=== PATIENT | female | born 1990 | race African-American/Black ===

== ENCOUNTER 2017-06-11 20:24 | Emergency (ER) | payer OTHER, SELFPAY ==
[~2017-06-11] VITALS: Ht 162.6 cm; Wt 63.0 kg
[~2017-06-11 20:24] MED LIST: IBUPROFEN600 MG ORAL; NKM
[2017-06-11 20:42] VITALS: BP 97/60
[2017-06-11 20:58] LABS: APPEARANCE,URINE CLEAR; KETONES,URINE NEGATIVE (NEGATIVE); LEUKOCYTE ESTERASE ,URINE 3+ (NEGATIVE); NITRITE,URINE NEGATIVE (NEGATIVE); PH,URINE 7 (4.5-8.0); PROTEIN,URINE 1+ (NEGATIVE); UROBILINOGEN,URINE NORMAL MG/DL (0.0-1.0)
[2017-06-11 21:02] LABS: BACTERIA,URINE FEW /HPF; MUCUS,URINE FEW /LPF (NONE/OCC); SQUAMOUS EPITHELIAL CELL,UR OCCASIONAL /LPF (NONE/OCC)
[2017-06-11] MEDS ORDERED: PHENAZOPYRIDIN200 MG ORAL (21:47)
[2017-06-11 21:57] VITALS: BP 97/60
--- NOTE | 2017-06-11 22:04 | Emergency Room Report ---
History of Present Illness General Chief Complaint: Female Urogenital Problems Source: Patient Present Illness HPI 27YOF with continued vaginal irritation Denies dysuria, polyuria States "Gabi been to 3 ERs and 1 clinic." She got tested for STDs, "all negative." Complete Abx for UTI already Completed anti-fungal "one time" for "cottage cheese discharge" and then "3 more doses of same" after that Denies current "cottage cheese discharge." Allergies: Coded Allergies: No Known Allergies (Unverified , 09/14/12) Patient History Past Medical History: none Past Surgical History: none Pertinent Family History: none Last Menstrual Period: may 17 Now: No : 2 Para: 2 Immunizations: UTD Reviewed Nursing Documentation: PMH: Agreed, PSxH: Agreed Nursing Documentation-PMH Hx Cardiac Problems: No - ANEMIA, Review of Systems All Other Systems: negative except mentioned in HPI Physical Exam Vital Signs Date Time Temp Pulse Resp B/P (MAP) Pulse Ox O2 Delivery O2 Flow Rate FiO2 06/11/17 20:30 98.2 88 18 97/60 98 Room Air Sp02 EP Interpretation: reviewed, normal General Appearance: normal inspection, well appearing, no apparent distress, alert, GCS 15, non-toxic Head: normocephalic, atraumatic Eyes: bilateral eye PERRL, bilateral eye EOMI ENT: normal ENT inspection, hearing grossly normal, normal pharynx, no angioedema, normal voice, TMs + canals normal, uvula midline, moist mucus membranes Neck: normal inspection, full range of motion, supple, thyroid normal, no meningismus, no bony tend Respiratory: normal inspection, lungs clear, normal breath sounds, no rhonchi, no respiratory distress, no retraction, no accessory muscle use, no wheezing, speaking full sentences Cardiovascular #1: regular rate, rhythm, no edema, no JVD, normal capillary refill Gastrointestinal: normal inspection, normal bowel sounds, non tender, soft, no mass, no peritonitis, non-distended, no guarding, no hernia, no pulsatile mass Genitourinary: no CVA tenderness Musculoskeletal: normal inspection, back normal, normal range of motion, no calf tenderness, pelvis stable, Hoa's Sign negative Neurologic: normal inspection, alert, oriented x3, responsive, it intern III-XII nml as tested, motor strength/tone normal, cerebellar normal, normal gait, speech normal Psychiatric: normal inspection, judgement/insight normal, mood/affect normal, no suicidal/homicidal ideation, no delusions Skin: normal inspection, normal color, no rash Lymphatic: normal inspection, no adenopathy Medical Decision Making Diagnostic Impression: Primary Impression: Dysuria ER Course Urine preg negative No obvious UTI and unlikely given recently completed Abx Patient already took anti-fungal, likely diflucan, 1x and then 3x for refractory fungal infection Advised STOPPING additional antibacterials, antifungal d/t likely disruption in normal vaginal cheryl Rx Pyridium for irritation ER course: Patient has remained stable during ED stay. Patient is to be discharged to home. Prescriptions given are pyridium Patient is instructed to follow up with their primary care doctor within 5 days. Strict return precautions discussed with patient such as fever, chills, worsening/severe pain, nausea, vomiting, which may indicate severe illness. Patient verbalizes understanding and agrees with plan. Please note that this Emergency Department Report was dictated using [employer] system dispatcher technology software, occasionally this can lead to erroneous entry secondary to interpretation by the dictation equipment Last Vital Signs Date Time Temp Pulse Resp B/P (MAP) Pulse Ox O2 Delivery O2 Flow Rate FiO2 06/11/17 20:42 98.2 88 18 97/60 98 Room Air Status: improved Disposition: HOME, SELF-CARE Condition: Improved Scripts Phenazopyridine Hcl* (PYRIDIUM*) 200 Mg Tablet 200 MG ORAL THREE TIMES A DAY for dysuria for 2 Days, #6 TAB 0 Refills Prov: ARIAN BOSCH M.D. 06/11/17 Referrals: [email or web address],REFERRING (PCP) Patient Instructions: Vaginitis Additional Instructions: - Take after meals ARIAN BOSCH M.D. Jun 11, 2017 22:04
== END 2017-06-11 21:57 | disposition home or self-care (01) ==
LOC: EMR 20:49
DX: N89.8 Other specified noninflammatory disorders of vagina (principal); R30.0 Dysuria
CPT/HCPCS: 81003; 81025; 99283

== ENCOUNTER 2017-06-27 23:19 | Emergency (ER) | payer OTHER ==
[~2017-06-27] VITALS: Ht 162.6 cm; Wt 63.5 kg
[~2017-06-27 23:19] MED LIST changes: +PHENAZOPYRIDIN200 MG ORAL
[2017-06-27 23:45] VITALS: BP 113/73
[2017-06-28] MEDS ORDERED: Lidocaine 1% MPF 10mg/ml 5ml INJ ONE
[2017-06-28 00:06] LABS: APPEARANCE,URINE CLEAR; BILIRUBIN, URINE NEGATIVE (NEGATIVE); COLOR,URINE PALE YELLOW; GLUCOSE, URINE (UA) NEGATIVE (NEGATIVE); KETONES,URINE NEGATIVE (NEGATIVE); LEUKOCYTE ESTERASE ,URINE 2+ (NEGATIVE); NITRITE,URINE NEGATIVE (NEGATIVE); PH,URINE 7 (4.5-8.0); PROTEIN,URINE NEGATIVE (NEGATIVE); UROBILINOGEN,URINE 1 MG/DL (0.0-1.0)
[2017-06-28] MEDS ORDERED: FLUCONAZOLE100 MG ORAL (00:27)
[2017-06-28] MEDS ORDERED: METROGEL-VAGINA70 G1 VAGIN (00:38)
[2017-06-28] MEDS ORDERED: DOXYCYCLINE MO100 MG ORAL (00:38)
[2017-06-28 01:06] VITALS: BP 113/73
--- NOTE | 2017-07-09 11:42 | Emergency Room Report ---
History of Present Illness General Chief Complaint: Female Urogenital Problems Source: Patient Present Illness HPI Patient is a 27 year old female who presented after increased vaginal discharge and dysuria. Patient had recently finished a course of antibiotics. She denied fever. She denied severe pain. She reported having recently seen a physician but did not know what medications were. She denied localized pain. She denied vomiting, diarrhea or bloody stools. Allergies: Coded Allergies: No Known Allergies (Unverified , 09/14/12) Patient History Past Medical History: see triage record Last Menstrual Period: 2016 Now: No Reviewed Nursing Documentation: PMH: Agreed, PSxH: Agreed Nursing Documentation-PMH Past Medical History: No History, Except For Hx Cardiac Problems: No - Anemia, UTI, Ectopic Review of Systems All Other Systems: negative except mentioned in HPI Physical Exam Vital Signs Date Time Temp Pulse Resp B/P (MAP) Pulse Ox O2 Delivery O2 Flow Rate FiO2 06/27/17 23:27 98.8 106 16 113/73 98 Room Air General Appearance: well appearing, no apparent distress, alert, GCS 15 Head: normocephalic, atraumatic ENT: hearing grossly normal, normal voice Neck: full range of motion, supple Respiratory: normal inspection, lungs clear, no respiratory distress, speaking full sentences Cardiovascular #1: normal inspection, regular rate, rhythm Gastrointestinal: normal inspection, non tender, soft Genitourinary: no CVA tenderness Musculoskeletal: normal inspection, digits/nails normal, no calf tenderness Neurologic: normal inspection, alert, oriented x3, responsive, normal gait Psychiatric: mood/affect normal Skin: no rash Medical Decision Making Diagnostic Impression: Primary Impression: Vaginitis ER Course Patient is a 27 year old female who presented for increased vaginal discharge. Differential diagnosis included but was not limited to vaginitis, PID, bacterial vaginosis, trichomonas among others. Patient appears to have a benign exam. Patient was empirically treated for STDs. She was advised outpatient follow up for further STD and HIV testing. She was advised to return for worsening pain, fever, or other concerns. Labs Test 06/27/17 23:50 Urine Color Pale yellow Urine Appearance Clear Urine pH 7 (4.5-8.0) Urine Specific [place] 1.010 (1.005-1.035) Urine Protein Negative (NEGATIVE) Urine Glucose (UA) Negative (NEGATIVE) Urine Ketones Negative (NEGATIVE) Urine Occult Blood Negative (NEGATIVE) Urine Nitrite Negative (NEGATIVE) Urine Bilirubin Negative (NEGATIVE) Urine Urobilinogen 1 MG/DL (0.0-1.0) Urine Leukocyte Esterase 2+ (NEGATIVE) Urine RBC 0-2 /HPF (0 - 2) Urine WBC 10-15 /HPF (0 - 2) Urine Squamous Epithelial Cells Many /LPF (NONE/OCC) Urine Bacteria Few /HPF (NONE) Urine HCG, Qualitative Negative Last Vital Signs Date Time Temp Pulse Resp B/P (MAP) Pulse Ox O2 Delivery O2 Flow Rate FiO2 06/28/17 01:06 98.8 88 16 113/73 98 Room Air Status: improved Disposition: HOME, SELF-CARE Condition: Stable Scripts Metronidazole* (METROGEL-VAGINAL*) 70 Gm Gel.w.appl 1 APPL VAGIN EVERY 12 HOURS, #70 GM Prov: Alexi Brown 06/28/17 Doxycycline Monohydrate* (DOXYCYCLINE MONOHYDRATE*) 100 Mg Capsule 100 MG ORAL Q12H, #14 CAP 0 Refills Prov: Alexi Brown 06/28/17 Fluconazole (FLUCONAZOLE) 100 Mg Tablet 100 MG ORAL DAILY, #1 TAB 0 Refills Prov: Alexi Brown 06/28/17 Alexi Brown Jul 09, 2017 11:42
== END 2017-06-28 01:06 | disposition home or self-care (01) ==
LOC: EMR 23:40
DX: R10.9 Unspecified abdominal pain (principal); N89.8 Other specified noninflammatory disorders of vagina
CPT/HCPCS: 81003; 81025; 87086; 96372; 99283; J0696

== ENCOUNTER 2018-09-26 21:19 | Emergency (ER) | payer MEDICAID, OTHER ==
[~2018-09-26] VITALS: Ht 160 cm; Wt 63.5 kg
[~2018-09-26 21:19] MED LIST changes: +DOXYCYCLINE MO100 MG ORAL; +FLUCONAZOLE100 MG ORAL; +METROGEL-VAGINA70 G1 VAGIN
--- NOTE | 2018-09-26 21:30 | NUR ---
ED Nurse Note: PT WALKED IN TO ER TODAY FROM HOME. AOX4. PT C/O VAGINAL ITCHING, SWELLING AND SCANT "COTTAGE CHEESE"-LIKE DISCHARGE X 2 DAYS AGO. PT DENIES ANY BLEEDING, ODOR, OR REDNESS. PT DENIES ANY DIFFICULTY URINATING, BURNING SENSATION WHILE URINATING OR INCREASE IN FREQUENCY/URGENCY.
[2018-09-26 21:31] VITALS: BP 112/62
--- NOTE | 2018-09-26 22:00 | NUR ---
ED Nurse Note: URINE COLLECTED AND SENT TO LAB.
[2018-09-26 22:18] LABS: APPEARANCE,URINE SLIGHTLY CLOUDY; BILIRUBIN, URINE NEGATIVE (NEGATIVE); COLOR,URINE PALE YELLOW; GLUCOSE, URINE (UA) NEGATIVE (NEGATIVE); KETONES,URINE NEGATIVE (NEGATIVE); LEUKOCYTE ESTERASE ,URINE 3+ (NEGATIVE); NITRITE,URINE NEGATIVE (NEGATIVE); PH,URINE 7 (4.5-8.0); PROTEIN,URINE NEGATIVE (NEGATIVE); UROBILINOGEN,URINE 1 MG/DL (0.0-1.0)
--- NOTE | 2018-09-26 22:20 | Emergency Room Report ---
History of Present Illness General Chief Complaint: Female Urogenital Problems Source: Patient Present Illness HPI Is a 28-year-old female with no past medical she patient presents with chief complaint of vaginal discharge. She said it was a thick cottage cheesy-like discharge for last 2 days. Itching. No fever or chills. Tried Monistat today and not helping. No urinary complaint. Is sexually active history of Chlamydia in the past. She has regular Pap smear. Last one show HPV and is being monitor. No other complaint. Allergies: Coded Allergies: No Known Allergies (Unverified , 09/14/12) Patient History Past Medical History: none, see triage record, old chart reviewed Past Surgical History: none Pertinent Family History: none Social History: Denies: smoking Last Menstrual Period: 08/05/18 Now: No Immunizations: other Reviewed Nursing Documentation: PMH: Agreed; PSxH: Agreed Nursing Documentation-PMH Past Medical History: No History, Except For Hx Cardiac Problems: No - Anemia, UTI, Ectopic Review of Systems Eye: Denies: eye pain, blurred vision ENT: Denies: ear pain, nose congestion, throat swelling Respiratory: Denies: cough, shortness of breath Cardiovascular: Denies: chest pain, palpitations Gastrointestinal: Denies: abdominal pain, diarrhea, nausea, vomiting Genitourinary: Reports: vag bleed/dc Musculoskeletal: Denies: back pain, joint pain Skin: Denies: rash Neurological: Denies: headache, numbness Endocrine: Denies: increased thirst, increased urine Hematologic/Lymphatic: Denies: easy bruising All Other Systems: negative except mentioned in HPI Physical Exam Vital Signs Date Time Temp Pulse Resp B/P (MAP) Pulse Ox O2 Delivery O2 Flow Rate FiO2 09/26/18 21:21 98.4 86 12 107/48 98 Room Air vitals normal Sp02 EP Interpretation: reviewed, normal General Appearance: well appearing, no apparent distress, alert Head: normocephalic, atraumatic Eyes: bilateral eye PERRL, bilateral eye EOMI ENT: hearing grossly normal, normal pharynx Neck: full range of motion, supple, no meningismus Respiratory: chest non-tender, lungs clear, normal breath sounds Cardiovascular #1: regular rate, rhythm, no murmur Gastrointestinal: normal bowel sounds, non tender, no mass, no organomegaly, no bruit, non-distended Musculoskeletal: back normal, gait/station normal, normal range of motion Psychiatric: mood/affect normal Skin: warm/dry Medical Decision Making Diagnostic Impression: Primary Impression: Vaginitis Qualified Codes: N76.0 - Acute vaginitis Additional Impression: UTI (urinary tract infection) Qualified Codes: N30.00 - Acute cystitis without hematuria ER Course Patient with a vaginitis. We'll treat for yeast infection based on the symptoms. She currently has Monistat intravaginally. This will limit the wet prep. If not better I told patient she would need cultures. Last Vital Signs Date Time Temp Pulse Resp B/P (MAP) Pulse Ox O2 Delivery O2 Flow Rate FiO2 09/26/18 21:31 98.2 82 14 112/62 99 Room Air Status: improved Disposition: HOME, SELF-CARE Condition: Stable Scripts Fluconazole (FLUCONAZOLE) 100 Mg Tablet 100 MG ORAL DAILY, #7 TAB 0 Refills Prov: Basilio Hodge MD 09/26/18 Nitrofurantoin Monohyd/M-Cryst (Nitrofurantoin [place]-Mcr 100 mg) 100 Mg Capsule 100 MG ORAL Q12H, #14 CAP Prov: Basilio Hodge MD 09/26/18 Patient Instructions: Urinary Tract Infection, Vaginal Yeast Infection, Adult Additional Instructions: Follow-up with your doctor in 7 days. Stop the Monistat. Return if symptom worsen. Basilio Hodge MD Sep 26, 2018 22:20
[2018-09-26] MEDS ORDERED: FLUCONAZOLE100 MG ORAL (22:56)
[2018-09-26] MEDS ORDERED: MACROBID100 MG ORAL (22:56)
[2018-09-26 22:57] VITALS: BP 118/68
--- NOTE | 2018-09-26 23:04 | NUR ---
ED Nurse Note: PT SITTING PEACEFULLY IN BED IN NAD. AOX4. PRESCRIPTIONS AND DISCHARGE PAPERWORK GIVEN TO PT. PT VERBALIZES UNDERSTANDING AND ALL QUESTIONS ANSWERED. PRESCRIPTIONS AND DISCHARGE PAPERWORK GIVEN TO PT AND ID WRISTBAND REMOVED. PT WALKED OUT OF ER WITH STEADY GAIT AND ALL BELONGINGS.
== END 2018-09-26 23:04 | disposition home or self-care (01) ==
LOC: EMR 21:58
DX: N76.0 Acute vaginitis (principal); N30.00 Acute cystitis without hematuria
CPT/HCPCS: 81003; 81025; 87086; 87181; 99283

== ENCOUNTER 2019-02-17 17:37 | Emergency (ER) | payer MEDICAID ==
[~2019-02-17] VITALS: Ht 162.6 cm; Wt 65.8 kg
[~2019-02-17 17:37] MED LIST changes: +MACROBID100 MG ORAL
[2019-02-17 17:47] VITALS: BP 111/68
--- NOTE | 2019-02-17 17:47 | NUR ---
ED Nurse Note: pt walked in to ED due to whitish vaginal discharge for 2 days. no pain or itchness. AAO x4. respirations even and non-labored noted. skin warm to touch. no open wound noted. will wait for the further order.
--- NOTE | 2019-02-17 18:03 | Emergency Room Report ---
History of Present Illness General Chief Complaint: Vaginal Source: Medical Record Present Illness HPI 28-year-old female with no significant past medical history here complaining of couple days of vaginal discharge described as white and having fishy odor. Patient reports that she is sexually active and does not use any protection. Denies vaginal ulcers and pruritus. Denies dysuria and urinary frequency. Denies fever and chills, suprapubic pain, flank pain, nausea vomiting. Patient reports that she last had STD check 3 months ago and was negative patient is still with the same partner. Has not taken any medication for symptom relief. Patient would like to be tested for chlamydia and gonorrhea however would like to wait for the results and if positive to take the appropriate antibiotic. Would like to be treated for possible bacterial vaginosis and yeast infection. LMP was a month ago and regular Allergies: Coded Allergies: No Known Allergies (Unverified , 09/14/12) Patient History Past Medical History: see triage record Past Surgical History: unable to obtain Pertinent Family History: none Last Menstrual Period: 01/19/19 Now: No Immunizations: UTD Reviewed Nursing Documentation: PMH: Agreed; PSxH: Agreed Nursing Documentation-PMH Past Medical History: No History, Except For Hx Cardiac Problems: No - Anemia, UTI, Ectopic Review of Systems All Other Systems: negative except mentioned in HPI Physical Exam Vital Signs Date Time Temp Pulse Resp B/P (MAP) Pulse Ox O2 Delivery O2 Flow Rate FiO2 02/17/19 17:47 99.0 68 18 111/68 (82) 100 Room Air Sp02 EP Interpretation: reviewed, normal General Appearance: no apparent distress, alert, GCS 15, non-toxic Head: normocephalic, atraumatic Eyes: bilateral eye normal inspection, bilateral eye PERRL ENT: hearing grossly normal, normal pharynx, no angioedema, normal voice Neck: full range of motion, supple/symm/no masses Respiratory: chest non-tender, lungs clear, normal breath sounds, no rhonchi, speaking full sentences Cardiovascular #1: regular rate, rhythm, no edema, no murmur Gastrointestinal: normal bowel sounds, non tender, soft, non-distended, no guarding, no rebound Genitourinary: normal inspection, no CVA tenderness Musculoskeletal: back normal, gait/station normal, normal range of motion, non- tender Neurologic: alert, oriented x3, responsive, motor strength/tone normal, sensory intact, speech normal Psychiatric: judgement/insight normal, memory normal, mood/affect normal, no suicidal/homicidal ideation Skin: no rash Lymphatic: no adenopathy Medical Decision Making PA Attestation All diagnoses and treatment plans were reviewed and discussed with my supervising physician Dr. Baca Diagnostic Impression: Primary Impression: Vaginitis Additional Impression: Screening for STD (sexually transmitted disease) ER Course 28-year-old female with no significant past medical history here complaining of couple days of vaginal discharge described as white and having fishy odor. Patient reports that she is sexually active and does not use any protection. Denies vaginal ulcers and pruritus. Denies dysuria and urinary frequency. Denies fever and chills, suprapubic pain, flank pain, nausea vomiting. Patient reports that she last had STD check 3 months ago and was negative patient is still with the same partner. Has not taken any medication for symptom relief. Patient would like to be tested for chlamydia and gonorrhea however would like to wait for the results and if positive to take the appropriate antibiotic. Would like to be treated for possible bacterial vaginosis and yeast infection. LMP was a month ago and regular Ddx considered but are not limited to: vaginitis, yeast infection, BV, chlamydia , Gonorrhea, UTI Vital signs: are WNL, pt. is afebrile H&PE are most consistent with : Vaginitis most likely secondary to BV and yeast infection ORDERS: UA, GC and chlamydia, urine , Flagyl, Diflucan ED INTERVENTIONS: None required at this time. DISCHARGE: At this time pt. is stable for d/c to home. Will provide printed patient care instructions, and any necessary prescriptions. Care plan and follow up instructions have been discussed with the patient prior to discharge. Patient take medication follow-up with her primary care provider pending GC and Chlamydia results if positive patient will be called and the appropriate antibiotics. Since he has no urinary frequency and urgency and no dysuria no need to treat positive leukocytes Last Vital Signs Date Time Temp Pulse Resp B/P (MAP) Pulse Ox O2 Delivery O2 Flow Rate FiO2 02/17/19 17:47 99.0 68 18 111/68 (82) 100 Room Air Disposition: HOME, SELF-CARE Condition: Stable Scripts Fluconazole (FLUCONAZOLE) 100 Mg Tablet 1.5 TAB ORAL ONCE for 1 Day, #2 TAB 0 Refills Prov: Lulú Bergeron 02/17/19 Metronidazole* (FLAGYL*) 500 Mg Tablet 500 MG ORAL BID for 7 Days, #14 TAB Prov: Lulú Bergeron 02/17/19 Patient Instructions: Vaginitis, Aevl-an-Enok Additional Instructions: Take medication as directed for possible yeast infection and bacterial vaginosis. Pending results for chlamydia and gonorrhea if either 1 of those are positive per your request we will go ahead and call you with the results and will let you know which antibiotics to be taken follow-up with your primary care provider if worsening symptoms return to the emergency room Lulú Bergeron Feb 17, 2019 18:02
[2019-02-17] MEDS ORDERED: METRONIDAZOLE500 MG ORAL (18:04)
[2019-02-17] MEDS ORDERED: FLUCONAZOLE100 MG ORAL (18:04)
[2019-02-17 18:15] VITALS: BP 111/68
--- NOTE | 2019-02-17 18:15 | NUR ---
ER DISCHARGE NOTE: Patient is cleared to be discharged per ERMD, pt is aox4, on room air, with stable vital signs. pt was given dc and prescription instructions, pt was able to verbalize understanding, pt id band removed without complications. pt is able to ambulate with steady gait. pt took all belongings.
[2019-02-17 18:16] LABS: APPEARANCE,URINE CLEAR; BILIRUBIN, URINE NEGATIVE (NEGATIVE); COLOR,URINE PALE YELLOW; GLUCOSE, URINE (UA) NEGATIVE (NEGATIVE); KETONES,URINE NEGATIVE (NEGATIVE); LEUKOCYTE ESTERASE ,URINE 1+ (NEGATIVE); NITRITE,URINE NEGATIVE (NEGATIVE); PH,URINE 6 (4.5-8.0); PROTEIN,URINE NEGATIVE (NEGATIVE); UROBILINOGEN,URINE NORMAL MG/DL (0.0-1.0)
== END 2019-02-17 18:17 | disposition home or self-care (01) ==
LOC: EMR 18:10
DX: N76.0 Acute vaginitis (principal); Z11.3 Encounter for screening for infections with a predominantly sexual mode of transmission
CPT/HCPCS: 81001; 81025; 87491; 87590; 99283

== ENCOUNTER 2019-04-06 17:25 | Emergency (ER) | payer MEDICAID ==
[~2019-04-06] VITALS: Ht 162.6 cm; Wt 68.0 kg
[~2019-04-06 17:25] MED LIST changes: +METRONIDAZOLE500 MG ORAL
[2019-04-06] MEDS ORDERED: NKM (17:39)
[2019-04-06 18:09] LABS: APPEARANCE,URINE CLOUDY; BILIRUBIN, URINE NEGATIVE (NEGATIVE); COLOR,URINE PALE YELLOW; GLUCOSE, URINE (UA) NEGATIVE (NEGATIVE); KETONES,URINE NEGATIVE (NEGATIVE); LEUKOCYTE ESTERASE ,URINE 2+ (NEGATIVE); NITRITE,URINE NEGATIVE (NEGATIVE); PH,URINE 7 (4.5-8.0); PROTEIN,URINE NEGATIVE (NEGATIVE); UROBILINOGEN,URINE NORMAL MG/DL (0.0-1.0)
--- NOTE | 2019-04-06 18:27 | Emergency Room Report ---
History of Present Illness General Chief Complaint: Female Urogenital Problems Source: Patient Present Illness HPI 28-year-old female with no segment hospital history here complaining of 1 week of white clumpy vaginal discharge with pruritus. Patient reports that she has been sexually active couple weeks ago however does not want to be given a list of STD clinics to be tested. Patient does not want to be prophylactically treated for chlamydia and gonorrhea. Only requests to be treated for yeast infection and bacterial vaginosis. Denies any urinary frequency, dysuria. Denies fever and chills, pelvic pain, hematuria, vaginal ulcers, chest pain, nausea vomiting, shortness of breath, palpitation or other associated symptoms. Last menstrual. Was 2 weeks ago and regular Allergies: Coded Allergies: No Known Allergies (Unverified , 09/14/12) Patient History Past Medical History: see triage record Past Surgical History: unable to obtain Pertinent Family History: none Last Menstrual Period: 03/05/19 Now: No : 2 Para: 0 Immunizations: UTD Reviewed Nursing Documentation: PMH: Agreed; PSxH: Agreed Nursing Documentation-PMH Past Medical History: No History, Except For Review of Systems All Other Systems: negative except mentioned in HPI Physical Exam Vital Signs Date Time Temp Pulse Resp B/P (MAP) Pulse Ox O2 Delivery O2 Flow Rate FiO2 04/06/19 17:35 97.9 77 18 117/60 (79) 100 Room Air Sp02 EP Interpretation: reviewed, normal General Appearance: no apparent distress, alert, GCS 15, non-toxic Head: normocephalic, atraumatic Eyes: bilateral eye normal inspection, bilateral eye PERRL ENT: hearing grossly normal, normal pharynx, no angioedema, normal voice Neck: full range of motion, supple/symm/no masses Respiratory: chest non-tender, lungs clear, normal breath sounds, speaking full sentences Cardiovascular #1: regular rate, rhythm, no edema, no murmur Gastrointestinal: normal bowel sounds, non tender, soft Genitourinary: no CVA tenderness Musculoskeletal: back normal, digits/nails normal, gait/station normal Neurologic: alert, oriented x3, responsive, motor strength/tone normal, sensory intact, speech normal Psychiatric: normal inspection, judgement/insight normal Skin: no rash Lymphatic: no adenopathy Medical Decision Making PA Attestation All my diagnosis and treatment plans were reviewed ad discussed with my supervising physician Dr. Vázquez Diagnostic Impression: Primary Impression: UTI (urinary tract infection) Additional Impression: Vaginitis ER Course 28-year-old female with no segment hospital history here complaining of 1 week of white clumpy vaginal discharge with pruritus. Patient reports that she has been sexually active couple weeks ago however does not want to be given a list of STD clinics to be tested. Patient does not want to be prophylactically treated for chlamydia and gonorrhea. Only requests to be treated for yeast infection and bacterial vaginosis. Denies any urinary frequency, dysuria. Denies fever and chills, pelvic pain, hematuria, vaginal ulcers, chest pain, nausea vomiting, shortness of breath, palpitation or other associated symptoms. Last menstrual. Was 2 weeks ago and regular Ddx considered but are not limited to: UTI, chlamydia, gonorrhea, bacterial vaginosis, yeast infection, PID Vital signs: are WNL, pt. is afebrile H&PE are most consistent with: UTI, vaginitis ORDERS: UA, urine test, doxycycline, metronidazole, Diflucan ED INTERVENTIONS: None required at this time. DISCHARGE: At this time pt. is stable for d/c to home. Will provide printed patient care instructions, and any necessary prescriptions. Care plan and follow up instructions have been discussed with the patient prior to discharge. Patient later complained to the chart that she did not like that she was treated in the hallway with lack of privacy however her examination not available to examine her and no direct language referring to sexual intercourse as well as STD was used. Last Vital Signs Date Time Temp Pulse Resp B/P (MAP) Pulse Ox O2 Delivery O2 Flow Rate FiO2 04/06/19 17:35 97.9 77 18 117/60 (79) 100 Room Air Disposition: HOME, SELF-CARE Condition: Stable Scripts Metronidazole* (FLAGYL*) 500 Mg Tablet 500 MG ORAL BID for 7 Days, #14 TAB Prov: Lulú Bergeron 04/06/19 Fluconazole (FLUCONAZOLE) 100 Mg Tablet 150 MG ORAL ONCE for 1 Day, #1 TAB 0 Refills Prov: Lulú Bergeron 04/06/19 Doxycycline Hyclate* (VIBRAMYCIN*) 100 Mg Capsule 100 MG ORAL EVERY 12 HOURS for 7 Days, #14 CAP 0 Refills Prov: Lulú Bergeron 04/06/19 Patient Instructions: Vaginitis, Urinary Tract Infection Lulú Bergeron Apr 06, 2019 18:27
[2019-04-06] MEDS ORDERED: METRONIDAZOLE500 MG ORAL (18:29)
[2019-04-06] MEDS ORDERED: VIBRAMYCIN100 MG ORAL (18:29)
[2019-04-06] MEDS ORDERED: FLUCONAZOLE100 MG ORAL (18:29)
--- NOTE | 2019-04-06 18:35 | NUR ---
ER DISCHARGE NOTE: Patient is cleared to be discharged per ERMD, pt is aox4, on room air, with stable vital signs. pt was given dc and prescription instructions, pt was able to verbalize understanding, pt is able to ambulate with steady gait. pt took all belongings.
[2019-04-06 18:56] VITALS: BP 117/60
[2019-04-06 18:57] VITALS: BP 117/60
== END 2019-04-06 18:57 | disposition home or self-care (01) ==
LOC: EMR 18:12
DX: N76.0 Acute vaginitis (principal); N39.0 Urinary tract infection, site not specified
CPT/HCPCS: 81001; 81025; 87086; Z7502; 99283

== ENCOUNTER → 2019-07-06 | Emergency (ER) | payer MEDICAID ==
[~2019-07-06] VITALS: Ht 162.6 cm; Wt 54.4 kg
[~2019-07-06] MED LIST changes: +NITROFURANTOIN100 M2 ORAL; +VIBRAMYCIN100 MG ORAL
[2019-07-06 13:31] VITALS: BP 107/72
--- NOTE | 2019-07-06 13:40 | NUR ---
ED Nurse Note: PT AMBULATED INTO ED FROM HOME CO VAGINAL ITCHING AND FOUL SMELL X 2 DAYS. PT DENIES BLEEDING, VAGINAL DISHARGE, BURNING, URGENCY, FREQUENCY DURING URINATION. PT VS IN STABLE CONDITION, NO S/S OF DISTRESS. PT RESTING IN BED
--- NOTE | 2019-07-06 13:44 | NUR ---
ED Nurse Note: URine sent.
[2019-07-06 13:57] LABS: APPEARANCE,URINE CLEAR; BILIRUBIN, URINE NEGATIVE (NEGATIVE); COLOR,URINE PALE YELLOW; GLUCOSE, URINE (UA) NEGATIVE (NEGATIVE); KETONES,URINE NEGATIVE (NEGATIVE); LEUKOCYTE ESTERASE ,URINE 1+ (NEGATIVE); NITRITE,URINE NEGATIVE (NEGATIVE); PH,URINE 5 (4.5-8.0); PROTEIN,URINE 1+ (NEGATIVE); UROBILINOGEN,URINE NORMAL MG/DL (0.0-1.0)
--- NOTE | 2019-07-06 14:25 | NUR ---
ED Nurse Note: ermd AT BEDSIDE
--- NOTE | 2019-07-06 14:29 | NUR ---
ED Nurse Note: ERMD AT BEDSIDE
--- NOTE | 2019-07-06 14:38 | Emergency Room Report ---
History of Present Illness General Chief Complaint: Female Urogenital Problems Source: Patient Present Illness HPI 29-year-old female with no significant past medical history here complaining 1 week for urinary frequency and fishy odor coming from the vaginal area. Denies any vaginal discharge. Reports that few days ago she went to an STD clinic and was tested for chlamydia and gonorrhea and tested negative. Patient reports that she was last sexually active 1-1/2 weeks ago. Has history of bacterial vaginosis. Complains of pruritus in the vaginal canal. Denies fever and chills , headache, dizziness, nausea vomiting. Last menstrual period was a month ago and regular. Allergies: Coded Allergies: No Known Allergies (Unverified , 09/14/12) Patient History Past Medical History: see triage record Past Surgical History: unable to obtain Pertinent Family History: none Last Menstrual Period: 05/11/20 Now: No Immunizations: UTD Reviewed Nursing Documentation: PMH: Agreed; PSxH: Agreed Nursing Documentation-PMH Past Medical History: No Stated History Review of Systems All Other Systems: negative except mentioned in HPI Physical Exam Vital Signs Date Time Temp Pulse Resp B/P (MAP) Pulse Ox O2 Delivery O2 Flow Rate FiO2 07/06/19 13:31 98.6 82 16 107/72 (84) 99 Room Air Sp02 EP Interpretation: reviewed, normal General Appearance: no apparent distress, alert, GCS 15, non-toxic Head: normocephalic, atraumatic Eyes: bilateral eye normal inspection, bilateral eye PERRL ENT: hearing grossly normal, normal pharynx, no angioedema, normal voice Neck: full range of motion, supple/symm/no masses Respiratory: chest non-tender, lungs clear, normal breath sounds, speaking full sentences Cardiovascular #1: regular rate, rhythm, no edema Gastrointestinal: normal bowel sounds, non tender, soft, non-distended, no guarding, no rebound Rectal: deferred Genitourinary: no CVA tenderness Musculoskeletal: back normal, normal range of motion, gait/station normal, non- tender Neurologic: alert, motor strength/tone normal, oriented x3, sensory intact, responsive, speech normal Psychiatric: judgement/insight normal, memory normal, mood/affect normal, no suicidal/homicidal ideation Skin: no rash Lymphatic: no adenopathy Medical Decision Making PA Attestation All my diagnosis and treatment plans were reviewed ad discussed with my supervising physician Dr. Vázquez Diagnostic Impression: Primary Impression: UTI (urinary tract infection) Additional Impression: Vaginitis ER Course 29-year-old female with no significant past medical history here complaining 1 week for urinary frequency and fishy odor coming from the vaginal area. Denies any vaginal discharge. Reports that few days ago she went to an STD clinic and was tested for chlamydia and gonorrhea and tested negative. Patient reports that she was last sexually active 1-1/2 weeks ago. Has history of bacterial vaginosis. Complains of pruritus in the vaginal canal. Denies fever and chills , headache, dizziness, nausea vomiting. Last menstrual period was a month ago and regular. Ddx considered but are not limited to: UTI, pyelonephritis, vaginitis, GC, Chlamydia Vital signs: are WNL, pt. is afebrile H&PE are most consistent with: UTI , vaginitis ORDERS: UA, urine cx, urine , Flagyl, Diflucan, Macrobid ED INTERVENTIONS: None required at this time. DISCHARGE: At this time pt. is stable for d/c to home. Will provide printed patient care instructions, and any necessary prescriptions. Care plan and follow up instructions have been discussed with the patient prior to discharge. Take medication as directed, avoid drinking alcohol, follow-up with your primary care provider, due to recurrent bacterial vaginosis infections follow- up with her crown buffer. Last Vital Signs Date Time Temp Pulse Resp B/P (MAP) Pulse Ox O2 Delivery O2 Flow Rate FiO2 07/06/19 13:31 98.6 16 107/72 99 Room Air 07/06/19 13:31 82 Disposition: HOME, SELF-CARE Condition: Stable Scripts Fluconazole (FLUCONAZOLE) 100 Mg Tablet 150 MG ORAL ONCE for 1 Day, #2 TAB 0 Refills Prov: Lulú Bergeron 07/06/19 Nitrofurantoin Monohyd/M-Cryst* (MACROBID 100 MG*) 100 Mg Capsule 100 MG ORAL EVERY 12 HOURS for 7 Days, #14 CAP Prov: Lulú Bergeron 07/06/19 Metronidazole* (FLAGYL*) 500 Mg Tablet 500 MG ORAL BID for 7 Days, #14 TAB Prov: Lulú Bergeron 07/06/19 Patient Instructions: Vaginitis, Urinary Tract Infection Additional Instructions: Take medication as directed, follow-up with your primary care provider, avoid drinking alcohol while you are taking Flagyl. Lulú Bergeron Jul 06, 2019 14:38
== END | disposition home or self-care (01) ==
LOC: EMR 16:40
DX: N39.0 Urinary tract infection, site not specified (principal); N76.0 Acute vaginitis
CPT/HCPCS: 81003; 81025; Z7502; 99282

== ENCOUNTER 2019-11-11 10:40 | Emergency (ER) | payer MEDICAID ==
[~2019-11-11] VITALS: Ht 162.6 cm; Wt 71.2 kg
[2019-11-11 10:54] VITALS: BP 121/81
--- NOTE | 2019-11-11 10:55 | NUR ---
ED Nurse Note: Patient walked in to ER from home due to rashes under her breast since waking up this morning. Also vaginal swelling and pain after sexual intercourse x 3 days. Patient presented calm, AAO x4.
--- NOTE | 2019-11-11 11:32 | Emergency Room Report ---
History of Present Illness General Chief Complaint: Skin Rash/Abscess Source: Patient Present Illness HPI 29-year-old female presents to ED complaining of rash. Noticed a rash underneath her breasts bilaterally this morning. States it is itchy. Denies pain. Denies any known food or drug allergies. Denies sick contacts. States she is also been experiencing pain during sexual intercourse for the last few days. Feels pain and swelling. Dull, 7 out of 10, nonradiating. Denies any bleeding or discharge. Denies dysuria hematuria. No other aggravating relieving factors. Denies any other associated symptoms Allergies: Coded Allergies: No Known Allergies (Unverified , 09/14/12) COVID-19 Screening Contact w/high risk pt: No Recent Travel to affected area: No Experienced COVID-19 symptoms?: No COVID-19 Testing performed SHELL REPRINT OPERATOR: No Patient History Past Medical History: none Past Surgical History: none Pertinent Family History: none Social History: Denies: smoking, alcohol use, drug use Last Menstrual Period: on her period Now: No Immunizations: UTD Reviewed Nursing Documentation: PMH: Agreed; PSxH: Agreed Nursing Documentation-PMH Past Medical History: No History, Except For Review of Systems All Other Systems: negative except mentioned in HPI Physical Exam Vital Signs Date Time Temp Pulse Resp B/P (MAP) Pulse Ox O2 Delivery O2 Flow Rate FiO2 11/11/19 10:46 98.4 66 17 121/81 (94) 97 Room Air Sp02 EP Interpretation: reviewed, normal General Appearance: no apparent distress, alert, GCS 15, non-toxic Head: normocephalic, atraumatic Eyes: bilateral eye normal inspection, bilateral eye PERRL ENT: hearing grossly normal, normal pharynx, no angioedema, normal voice Neck: full range of motion, supple/symm/no masses Respiratory: chest non-tender, lungs clear, normal breath sounds, speaking full sentences Cardiovascular #1: regular rate, rhythm, no edema Cardiovascular #2: 2+ carotid (R), 2+ carotid (L), 2+ radial (R), 2+ radial (L) , 2+ dorsalis pedis (R), 2+ dorsalis pedis (L) Gastrointestinal: normal bowel sounds, non tender, soft, non-distended, no guarding, no rebound Rectal: deferred Genitourinary: normal inspection, other - track car operator present. no cervical tenderness or inflammation. blood noted ( on period) Musculoskeletal: back normal, normal range of motion, gait/station normal, non- tender Neurologic: alert, motor strength/tone normal, oriented x3, sensory intact, responsive, speech normal Psychiatric: judgement/insight normal, memory normal, mood/affect normal, no suicidal/homicidal ideation Reflexes: 3+ bicep (R), 3+ bicep (L), 3+ tricep (R), 3+ tricep (L), 3+ knee (R) , 3+ knee (L) Skin: other - excematous rash under both breasts. nonerythematous. no induration. Lymphatic: no adenopathy Medical Decision Making Diagnostic Impression: Primary Impression: Vaginitis Qualified Codes: N76.0 - Acute vaginitis Additional Impression: Rash and other nonspecific skin eruption ER Course Hospital Course 29-year-old female presents to ED complaining of vaginal irritation, rash to breast Differential diagnoses include: Cervicitis, UTI, yeast infection, STD Clinical course Patient placed on stretcher in ED. After initial history, physical exam reveals a female in no acute distress. Pelvic exam-track car operator present, os is closed, no CMT, no adnexal tenderness. No other discharge noted. Bleeding noted. Patient is on her period appears to be an eczematous rash underneath both breasts. No signs of candidal rash. No erythema or induration I discussed findings with patient. Will prescribe triamcinolone for the rash. Will prescribe metronidazole. However patient has been here multiple times for a similar vaginitis presentation. I recommend close follow-up with FILING OR REGISTRY CLERK. States she has an FILING OR REGISTRY CLERK Diagnosis - vaginitis, rash and nonspecific skin eruption Stable and discharged to home with Rx Flagyl, Triamcinolone. Followup with PMD/ FILING OR REGISTRY CLERK. Return to ED if symptoms recur or worsen Labs Test 11/11/19 11:23 Urine Color Pale yellow Urine Appearance Slightly cloudy Urine pH 6 (4.5-8.0) Urine Specific [place] 1.020 (1.005-1.035) Urine Protein Negative (NEGATIVE) Urine Glucose (UA) Negative (NEGATIVE) Urine Ketones Negative (NEGATIVE) Urine Blood 5+ (NEGATIVE) Urine Nitrite Negative (NEGATIVE) Urine Bilirubin Negative (NEGATIVE) Urine Urobilinogen Normal MG/DL (0.0-1.0) Urine Leukocyte Esterase Negative (NEGATIVE) Urine RBC Tntc /HPF (0 - 2) Urine WBC 0-2 /HPF (0 - 2) Urine Squamous Epithelial Cells Occasional /LPF Urine Bacteria Occasional /HPF (NONE) Urine HCG, Qualitative Negative (NEGATIVE) Last Vital Signs Date Time Temp Pulse Resp B/P (MAP) Pulse Ox O2 Delivery O2 Flow Rate FiO2 11/11/19 10:54 98.4 17 121/81 97 Room Air 11/11/19 10:46 66 Status: improved Disposition: HOME, SELF-CARE Condition: Stable Scripts Triamcinolone Acetonide (Triamcinolone Acetonide 0.1% Oint*) 15 Gm Oint...g. 1 APPLIC TP BID, #15 GM Prov: Rashaad Giles MD 11/11/19 Metronidazole* (FLAGYL*) 500 Mg Tablet 500 MG ORAL BID for 7 Days, #14 TAB Prov: Rashaad Giles MD 11/11/19 Rashaad Giles MD November 11, 2019 11:32
[2019-11-11 11:37] LABS: APPEARANCE,URINE SLIGHTLY CLOUDY; BILIRUBIN, URINE NEGATIVE (NEGATIVE); COLOR,URINE PALE YELLOW; GLUCOSE, URINE (UA) NEGATIVE (NEGATIVE); KETONES,URINE NEGATIVE (NEGATIVE); LEUKOCYTE ESTERASE ,URINE NEGATIVE (NEGATIVE); NITRITE,URINE NEGATIVE (NEGATIVE); PH,URINE 6 (4.5-8.0); PROTEIN,URINE NEGATIVE (NEGATIVE); UROBILINOGEN,URINE NORMAL MG/DL (0.0-1.0)
[2019-11-11] MEDS ORDERED: TRIAMCINOLONE A15 G2 TP (12:30)
[2019-11-11] MEDS ORDERED: METRONIDAZOLE500 MG ORAL (12:30)
[2019-11-11 12:38] VITALS: BP 121/81
--- NOTE | 2019-11-11 12:39 | NUR ---
ED Nurse Note: Pt cleared by health care Provider for discharge. DC instructions/prescription was given and explained to pt and verbalized understanding of teachings. All medical deviecs such as ID band removed. Pt is AAO x4, ambulatory and left with all personal belongings.
== END 2019-11-11 12:38 | disposition home or self-care (01) ==
LOC: EMR 11:44
DX: N76.0 Acute vaginitis (principal); R21 Rash and other nonspecific skin eruption
CPT/HCPCS: 81003; 81025; Z7502; 99283

== ENCOUNTER 2020-03-05 15:35 | Emergency (ER) | payer MEDICAID ==
[~2020-03-05] VITALS: Ht 162.6 cm; Wt 68.0 kg
[~2020-03-05 15:35] MED LIST changes: +TRIAMCINOLONE A15 G2 TP
[2020-03-05 15:37] VITALS: BP 113/66
--- NOTE | 2020-03-05 15:47 | NUR ---
ED Nurse Note: Pt from home and came in due to absence of menstrual period x 4 months. Patient also unsure of she is and is sexually active. Denies any abd pain or vomiting. AAO x4 and ambulates with steady gait.
--- NOTE | 2020-03-05 16:05 | NUR ---
ED Nurse Note: Collected urine then sent.
[2020-03-05 16:22] LABS: BILIRUBIN, URINE NEGATIVE (NEGATIVE); COLOR,URINE PALE YELLOW; GLUCOSE, URINE (UA) NEGATIVE (NEGATIVE); KETONES,URINE NEGATIVE (NEGATIVE); LEUKOCYTE ESTERASE ,URINE NEGATIVE (NEGATIVE); NITRITE,URINE NEGATIVE (NEGATIVE); PH,URINE 8 (4.5-8.0); PROTEIN,URINE NEGATIVE (NEGATIVE); UROBILINOGEN,URINE NORMAL MG/DL (0.0-1.0)
[2020-03-05 16:24] LABS: APPEARANCE,URINE CLEAR
--- NOTE | 2020-03-05 16:57 | Emergency Room Report ---
History of Present Illness General Chief Complaint: Female Urogenital Problems Source: Patient (Maribel Slaughter) Present Illness HPI 29-year-old female presents to the emergency department complaining of not having her menstrual cycle for almost 4 months. Patient reports that her last cycle was either October or November of this year. She reports she was previously attempting to become . She denies taking oral control. Patient reports history of irregular periods in the past and was told that she has "a thicker lining "and was previously managed with oral control. She also reports hx of anemia. Patient reports she took a test which was negative. Patient is concerned due to not having her period. She denies fevers or chills. She denies vaginal discharge. She denies abdominal pain or tenderness, nausea vomiting, constipation or diarrhea. Patient does report some increased urinary frequency. She denies hematuria, dysuria or urgency. She denies low back pain. She denies night sweats, changes in weight, or increased in facial hair. Patient denies having any symptoms other than increase in frequency of urination and not having her cycle for 4 months. Denies hx of Cancer, was told she needs pap smear regularly. (Maribel Slaughter) Allergies: Coded Allergies: No Known Allergies (Unverified , 09/14/12) COVID-19 Screening Contact w/high risk pt: No Recent Travel to affected area: No Experienced COVID-19 symptoms?: No COVID-19 Testing performed VOLLEYBALL ASSISTANT COACH: No (Maribel Slaughter) Patient History Past Medical History: see triage record Past Surgical History: none Pertinent Family History: none Last Menstrual Period: 12/09/2019 Reviewed Nursing Documentation: PMH: Agreed; PSxH: Agreed (Maribel Slaughter) Nursing Documentation-PMH Past Medical History: No History, Except For (Maribel Slaughter) Review of Systems All Other Systems: negative except mentioned in HPI (Maribel Slaughter) Physical Exam Vital Signs Date Time Temp Pulse Resp B/P (MAP) Pulse Ox O2 Delivery O2 Flow Rate FiO2 03/05/20 15:37 97.7 83 19 113/66 (82) 100 Room Air Sp02 EP Interpretation: reviewed, normal General Appearance: no apparent distress, alert, GCS 15, non-toxic Head: normocephalic, atraumatic Eyes: bilateral eye normal inspection, bilateral eye PERRL ENT: hearing grossly normal, normal voice Neck: full range of motion Respiratory: lungs clear, normal breath sounds, speaking full sentences Cardiovascular #1: regular rate, rhythm Gastrointestinal: normal bowel sounds, non tender, soft Genitourinary: normal inspection, no CVA tenderness Musculoskeletal: normal range of motion, gait/station normal, non-tender Neurologic: alert, motor strength/tone normal, oriented x3, sensory intact, responsive, speech normal Psychiatric: judgement/insight normal Skin: no rash, normal color (Maribel Slaughter) Medical Decision Making PA Attestation Dr. Baca Is my supervising Physician whom patient management has been discussed with. (Maribel Slaughter) Diagnostic Impression: Primary Impression: Irregular periods/menstrual cycles ER Course 29-year-old female presents to the emergency department complaining of not having her menstrual cycle for almost 4 months. Patient reports that her last cycle was either October or November of this year. She reports she was previously attempting to become . She denies taking oral control. Patient reports history of irregular periods in the past and was told that she has "a thicker lining "and was previously managed with oral control. She also reports hx of anemia. Patient reports she took a test which was negative. Patient is concerned due to not having her period. She denies fevers or chills. She denies vaginal discharge. She denies abdominal pain or tenderness, nausea vomiting, constipation or diarrhea. Patient does report some increased urinary frequency. She denies hematuria, dysuria or urgency. She denies low back pain. She denies night sweats, changes in weight, or increased in facial hair. Patient denies having any symptoms other than increase in frequency of urination and not having her cycle for 4 months. Denies hx of Cancer, was told she needs pap smear regularly. Ddx considered but are not limited to: Hormonal imbalance, , ectopic , DUB, Fibroid, ectopic . Vital signs: are WNL, pt. is afebrile H&PE are most consistent with: Irregular menses, need to r/o . No evidence of acute abdomen on exam. The patient is nontoxic in appearance and in no acute distress resting comfortably in ED gurney. ORDERS: -Urine hcg- Negative -UA: Unremarkable ED INTERVENTIONS: None at this time. -D/w pt. laboratory results. Pt. is given a list of local women's clinics for further evaluation of her symptoms and hx of irregular menses with thicker endometrium. -I do not identify an emergent condition at this time. With current presentation, pt. is stable for close outpatient follow up and conservative treatment. D/w pt. to return promptly to ED with worsening or new symptoms.- Pt. verbalizes' understanding and agreement with proposed treatment plan. reiterated increased risk of blood clots with oral contraceptives. Pt. does not smoke she is encouraged not to start. DISCHARGE: At this time pt. is stable for d/c to home. Will provide printed patient care instructions, and any necessary prescriptions. Care plan and follow up instructions have been discussed with the patient prior to discharge. Labs Test 03/05/20 15:55 Urine Color Pale yellow Urine Appearance Clear Urine pH 8 (4.5-8.0) Urine Specific [place] 1.010 (1.005-1.035) Urine Protein Negative (NEGATIVE) Urine Glucose (UA) Negative (NEGATIVE) Urine Ketones Negative (NEGATIVE) Urine Blood Negative (NEGATIVE) Urine Nitrite Negative (NEGATIVE) Urine Bilirubin Negative (NEGATIVE) Urine Urobilinogen Normal MG/DL (0.0-1.0) Urine Leukocyte Esterase Negative (NEGATIVE) Urine HCG, Qualitative Negative (NEGATIVE) (Maribel Slaughter) Last Vital Signs Date Time Temp Pulse Resp B/P (MAP) Pulse Ox O2 Delivery O2 Flow Rate FiO2 03/05/20 15:37 97.7 83 19 113/66 100 Room Air (Maribel Slaughter) Disposition: HOME, SELF-CARE Condition: Stable Scripts Norethindrone-E.estradiol-Iron (Blisovi Fe 1-20 Tablet) 1 Each Tablet 1 EACH PO DAILY for 30 Days, #1 PACK Prov: Maribel Slaughter 03/05/20 Referrals: [facility],REFERRING (PCP) [facility] [place] [facility] Patient Instructions: Oral Contraception Information, Oral Contraception Use Additional Instructions: Take medications as directed. Follow up with a GRAPHIC DESIGNER within 3 days, even if your symptoms have resolved. Please refer to list of local women's clinics Return sooner to ED if new symptoms occur, or current symptoms become worse. - Please note that this Emergency Department Report was dictated using [employer] recruiter technology software, occasionally this can lead to erroneous entry secondary to interpretation by the dictation equipment. Maribel Slaughter Mar 05, 2020 16:57 Oscar Baca MD Mar 07, 2020 10:12
[2020-03-05] MEDS ORDERED: BLISOVI FE 1-21 EACH PO (16:58)
[2020-03-05 17:10] VITALS: BP 123/70
--- NOTE | 2020-03-05 17:10 | NUR ---
ER DISCHARGE NOTE: Patient is cleared to be discharged per PA, pt is aox4, on room air, with stable vital signs. pt was given dc and prescription instructions, pt was able to verbalize understanding, pt id band removed. pt is able to ambulate with steady gait. pt took all belongings.
== END 2020-03-05 17:10 | disposition home or self-care (01) ==
LOC: EMR 15:48
DX: N92.6 Irregular menstruation, unspecified (principal)
CPT/HCPCS: 81003; 81025; Z7502; 99282

== ENCOUNTER 2020-03-27 12:33 | Emergency (ER) | payer MEDICAID ==
[~2020-03-27] VITALS: Ht 162.6 cm; Wt 68.0 kg
[~2020-03-27 12:33] MED LIST changes: +BLISOVI FE 1-21 EACH PO
[2020-03-27] MEDS ORDERED: Dicyclomine 10mg Cap ORAL ONE (13:00)
[2020-03-27] MEDS ORDERED: Ketorolac 30mg Inj IV ONE (13:00)
--- NOTE | 2020-03-27 13:00 | NUR ---
ED Nurse Note: Patient from home and walked in due to lower abd pain with nausea x 3 days. Denies vomiting. Currently on her 3rd day of menstruation. No reports of burning sensation or diarrhea. AAO x4, ambulates with steady gait. Calm and speaks in full sentences.
[2020-03-27 13:10] VITALS: BP 135/65
--- NOTE | 2020-03-27 13:21 | NUR ---
ED Nurse Note: Collected blood and urine then sent.
[2020-03-27 13:31] LABS: BASOPHILS % (AUTO) 1.6 % (0.0-2.0); HEMATOCRIT 40.3 % (37.0-47.0); HEMOGLOBIN 12.5 G/DL (12.0-16.0); LYMPHOCYTES % (AUTO) 27.3 % (20.0-45.0); MEAN CORPUSCULAR VOLUME 75 FL (80-99); MONOCYTES % (AUTO) 7.2 % (1.0-10.0); NEUTROPHILS % (AUTO) 62.9 % (45.0-75.0); PLATELET COUNT 271 K/UL (150-450); RED BLOOD COUNT 5.38 M/UL (4.20-5.40); RED CELL DISTRIBUTION WIDTH 16.9 % (11.6-14.8); WHITE BLOOD COUNT 5.2 K/UL (4.8-10.8)
[2020-03-27 13:49] LABS: APPEARANCE,URINE CLEAR; BILIRUBIN, URINE NEGATIVE (NEGATIVE); COLOR,URINE PALE YELLOW; GLUCOSE, URINE (UA) NEGATIVE (NEGATIVE); KETONES,URINE NEGATIVE (NEGATIVE); LEUKOCYTE ESTERASE ,URINE NEGATIVE (NEGATIVE); NITRITE,URINE NEGATIVE (NEGATIVE); PH,URINE 6 (4.5-8.0); PROTEIN,URINE 1+ (NEGATIVE); UROBILINOGEN,URINE NORMAL MG/DL (0.0-1.0)
[2020-03-27 13:56] LABS: ANION GAP 11 mmol/L (5-15); BLOOD UREA NITROGEN 9 mg/dL (7-18); CALCIUM 8.5 MG/DL (8.5-10.1); CARBON DIOXIDE 24 MMOL/L (21-32); CHLORIDE 105 MMOL/L (98-107); CREATININE 0.8 MG/DL (0.55-1.30); POTASSIUM 4.3 MMOL/L (3.5-5.1); SODIUM 140 MMOL/L (136-145)
[2020-03-27 14:00] LABS: ALANINE AMINOTRANSFERASE 28 U/L (12-78); ALBUMIN 3.5 G/DL (3.4-5.0); ALBUMIN/GLOBULIN RATIO 0.8 (1.0-2.7); ALKALINE PHOSPHATASE 73 U/L (46-116); ASPARTATE AMINO TRANSFERASE 16 U/L (15-37); BILIRUBIN,TOTAL 0.3 MG/DL (0.2-1.0)
--- NOTE | 2020-03-27 14:27 | Emergency Room Report ---
History of Present Illness General Chief Complaint: Abdominal Pain Source: Patient Present Illness HPI 29-year-old female with no known significant past medical history here complaining of 3 days of epigastric abdominal pain with few bouts of nonbloody emesis and acid reflux. Also complains of flatulence however denies diarrhea constipation. Denies any bloody stools. Denies fever and chills, urinary symptoms. Ports that her period started today. Denies . Denies tobacco smoke, alcohol intake, no other drug use. Patient reports that she usually consumes a lot of greasy and acidic food and drinks a lot of soda on a daily basis. Denies any history of abdominal surgeries. Allergies: Coded Allergies: No Known Allergies (Unverified , 09/14/12) COVID-19 Screening Contact w/high risk pt: No Recent Travel to affected area: No Experienced COVID-19 symptoms?: No COVID-19 Testing performed LINER HELPER: No Patient History Last Menstrual Period: NA ( control) Immunizations: UTD Reviewed Nursing Documentation: PMH: Agreed; PSxH: Agreed Nursing Documentation-PMH Past Medical History: No History, Except For Review of Systems All Other Systems: negative except mentioned in HPI Physical Exam Vital Signs Date Time Temp Pulse Resp B/P (MAP) Pulse Ox O2 Delivery O2 Flow Rate FiO2 03/27/20 12:43 97.9 79 17 128/74 (92) 99 Room Air Sp02 EP Interpretation: reviewed, normal General Appearance: no apparent distress, alert, GCS 15, non-toxic Head: normocephalic, atraumatic Eyes: bilateral eye normal inspection, bilateral eye PERRL ENT: hearing grossly normal, normal pharynx, no angioedema, normal voice Neck: full range of motion, supple/symm/no masses Respiratory: chest non-tender, lungs clear, normal breath sounds, no rhonchi, speaking full sentences Cardiovascular #1: regular rate, rhythm, no edema, no murmur Cardiovascular #2: 2+ carotid (R), 2+ carotid (L), 2+ radial (R), 2+ radial (L), 2+ dorsalis pedis (R), 2+ dorsalis pedis (L) Gastrointestinal: normal bowel sounds, non tender, soft, no mass, no organomegaly, no peritonitis, no bruit, non-distended, no guarding, no hernia, no pulsatile mass, no rebound Rectal: deferred Genitourinary: no CVA tenderness Musculoskeletal: back normal, no calf tenderness Neurologic: alert, motor strength/tone normal, oriented x3, sensory intact, responsive, speech normal Psychiatric: judgement/insight normal, memory normal, mood/affect normal, no suicidal/homicidal ideation Skin: no rash Lymphatic: no adenopathy Medical Decision Making PA Attestation All my diagnosis and treatment plans were reviewed ad discussed with my supervising physician Dr. Brown Diagnostic Impression: Primary Impression: Gastritis Additional Impression: Abdominal pain ER Course 29-year-old female with no known significant past medical history here complain ing of 3 days of epigastric abdominal pain with few bouts of nonbloody emesis and acid reflux. Also complains of flatulence however denies diarrhea constipation. Denies any bloody stools. Denies fever and chills, urinary symptoms. Ports that her period started today. Denies . Denies tobacco smoke, alcohol intake, no other drug use. Patient reports that she usually consumes a lot of greasy and acidic food and drinks a lot of soda on a daily basis. Denies any history of abdominal surgeries. Ddx considered but are not limited to: appendicitis, cholecystis, gastritis, gastroenteritis, UTI, pyelonephritis, SBO, diverticulitis, influenza with GI manifestation, Vital signs: are WNL, pt. is afebrile H&PE are most consistent with: gastritis , abdominal pain ORDERS:, CMP, UA, tox screen, urine test, lipase, Pepcid, dicyclomine, Zofran ED INTERVENTIONS: NS bolus, Zofran, Pepcid, dicyclomine DISCHARGE: At this time pt. is stable for d/c to home. Will provide printed patient care instructions, and any necessary prescriptions. Care plan and follow up instructions have been discussed with the patient prior to discharge. Patient take medication as directed, follow primary care provider, avoid eating spicy greasy acidic food. This time no further evaluation or imaging needed as I believe that the abdomen is nonrigid and advised patient to return to the emergency room if any worsening symptoms also follow-up primary doctor. Last Vital Signs Date Time Temp Pulse Resp B/P (MAP) Pulse Ox O2 Delivery O2 Flow Rate FiO2 03/27/20 13:10 97.9 79 16 135/65 100 Room Air Disposition: HOME, SELF-CARE Condition: Stable Scripts Ondansetron (Zofran) 4 Mg Tablet 4 MG ORAL Q6H PRN for Nausea & Vomiting, #14 TAB Prov: Lulú Bergeron 03/27/20 Famotidine* (Pepcid 20mg tablet*) 20 Mg Tablet 20 MG ORAL TWICE A DAY for Gerd, #60 TAB 0 Refills Prov: Lulú Bergeron 03/27/20 Dicyclomine Hcl* (DICYCLOMINE HCL*) 10 Mg Capsule 10 MG ORAL QID, #20 CAP Prov: Lulú Bergeron 03/27/20 Referrals: [facility],REFERRING (PCP) Patient Instructions: Abdominal Pain, Adult, Gastritis, Adult, [id number] Additional Instructions: Take medication as directed, avoid spicy acidic and greasy food, follow primary care doctor, if worsening symptom return to the emergency room Lulú Bergeron Mar 27, 2020 14:27
[2020-03-27] MEDS ORDERED: ZOFRAN4 M1 ORAL (14:29)
[2020-03-27] MEDS ORDERED: FAMOTIDINE20 MG ORAL (14:29)
[2020-03-27] MEDS ORDERED: DICYCLOMINE HCL10 MG ORAL (14:29)
[2020-03-27 14:38] VITALS: BP 129/80
--- NOTE | 2020-03-27 14:38 | NUR ---
ER DISCHARGE NOTE: Patient is cleared to be discharged per PA, pt is aox4, on room air, with stable vital signs. pt was given dc and prescription instructions, pt was able to verbalize understanding, pt id band and iv site removed without complications. pt is able to ambulate with steady gait. pt took all belongings.
== END 2020-03-27 14:38 | disposition home or self-care (01) ==
LOC: EMR 13:00
DX: K29.70 Gastritis, unspecified, without bleeding (principal); R10.13 Epigastric pain
CPT/HCPCS: 36415; 80053; 80307; 81003; 81025; 83690; 85025; 96361; 96374; 96375; G0480; J1885; J2405; J7030; S0028; Z7502; 99284

== ENCOUNTER 2020-03-28 20:45 | Emergency (ER) | payer MEDICAID ==
[~2020-03-28] VITALS: Ht 162.6 cm; Wt 68.0 kg
[~2020-03-28 20:45] MED LIST changes: +DICYCLOMINE HCL10 MG ORAL; +FAMOTIDINE20 MG ORAL; +ZOFRAN4 M1 ORAL
[2020-03-28] MEDS ORDERED: Omnipaque-300 100ml vial INJ PRN (21:30)
[2020-03-28 21:40] VITALS: BP 140/87
[2020-03-28 21:56] LABS: BASOPHILS % (AUTO) 1.5 % (0.0-2.0); EOSINOPHILS % (AUTO) 0.7 % (0.0-3.0); HEMATOCRIT 37.2 % (37.0-47.0); HEMOGLOBIN 11.7 G/DL (12.0-16.0); LYMPHOCYTES % (AUTO) 24.4 % (20.0-45.0); MEAN CORPUSCULAR VOLUME 77 FL (80-99); NEUTROPHILS % (AUTO) 66.5 % (45.0-75.0); PLATELET COUNT 241 K/UL (150-450); RED BLOOD COUNT 4.85 M/UL (4.20-5.40); RED CELL DISTRIBUTION WIDTH 18.6 % (11.6-14.8)
--- NOTE | 2020-03-28 23:27 | Diagnostic Imaging Report ---
EXAM: CT Abdomen and Pelvis With Intravenous Contrast CLINICAL HISTORY: ABD PAIN TECHNIQUE: Axial computed tomography images of the abdomen and pelvis with intravenous contrast. CTDI is 9.8 mGy and DLP is 468.7 mGy-cm. One or more of the following dose reduction techniques were used: automated exposure control, adjustment of the mA and/or kV according to patient size, use of iterative reconstruction technique. COMPARISON: Pelvic ultrasound dated 10/05/2013 FINDINGS: Lung bases: Unremarkable. No mass. No consolidation. ABDOMEN: Liver: Unremarkable. No mass. Gallbladder and bile ducts: Unremarkable. No calcified stones. No ductal dilation. Pancreas: Unremarkable. No mass. No ductal dilation. Spleen: Unremarkable. No splenomegaly. Adrenals: Unremarkable. No mass. Kidneys and ureters: Unremarkable. No solid mass. No hydronephrosis. Stomach and bowel: Unremarkable. No obstruction. No mucosal thickening. PELVIS: Appendix: Normal appendix. Bladder: Unremarkable. No mass. Reproductive: 3.5 cm right ovarian cyst. 3.2 cm left ovarian cyst. ABDOMEN and PELVIS: Intraperitoneal space: Free fluid is noted within the posterior cul-de- sac. No free air. Bones/joints: No acute fracture. No dislocation. Soft tissues: Small fat-containing umbilical hernia. Vasculature: Unremarkable. No abdominal aortic aneurysm. Lymph nodes: Unremarkable. No enlarged lymph nodes. IMPRESSION: 1. Normal appendix. 2. Incidental bilateral ovarian cysts. If clinical concern, pelvic ultrasound can be considered. 3. Mild amount of pelvic free fluid, likely physiologic.
--- NOTE | 2020-03-28 23:34 | NUR ---
Nurse Note Pt arrived c/o LQU pain since 3 days ago. Pt stated 10/10 pain juan laying down. Pt denies v/d, but states slight nausea. Pt stated she seeked treatment but not effective. IV established, blood drawn and sent to lab, urine collected and sent to lab. Pt taken to and came back from radiology. Pt infusing NS bolus. Pt able to ambulance, does not show signs of pain currently. Awaiting orders; all safety measures met; will continue to monitor.
[2020-03-29 00:14] VITALS: BP 128/74
--- NOTE | 2020-03-29 00:19 | Emergency Room Report ---
History of Present Illness General Chief Complaint: Abdominal Pain Source: Patient Present Illness HPI Disclaimer: Please note that this report is being documented using Vtap technology. This can lead to erroneous entry secondary to incorrect interpretation by the dictating instrument. HPI: 29-year-old female presents with lower abdominal pain. She has had lower abdominal pain for the past few days. She denies any nausea vomiting fever or shortness of breath. Denies cough. No urinary complaints. Seen yesterday diagnosed with gastritis however pain was persistent. Pain 8 out of 10 nonradiating. PMH: Patient denies any past medical history PSH: Reviewed Social Hx: She denies any smoking drinking or illicit drug use Allergies: Coded Allergies: No Known Allergies (Unverified , 09/14/12) COVID-19 Screening Contact w/high risk pt: No Recent Travel to affected area: No Experienced COVID-19 symptoms?: No COVID-19 Testing performed GRAPPLER: No Patient History Reviewed Nursing Documentation: PMH: Agreed; PSxH: Agreed Review of Systems All Other Systems: negative except mentioned in HPI Physical Exam Vital Signs Date Time Temp Pulse Resp B/P (MAP) Pulse Ox O2 Delivery O2 Flow Rate FiO2 03/28/20 21:11 98.2 85 18 140/87 (104) 98 Room Air Sp02 EP Interpretation: reviewed, normal General Appearance: well appearing, no apparent distress Head: normocephalic, atraumatic Eyes: bilateral eye PERRL, bilateral eye EOMI ENT: hearing grossly normal, moist mucus membranes Neck: full range of motion, supple Respiratory: lungs clear, normal breath sounds, no rhonchi, no respiratory distress, no retraction, no wheezing Cardiovascular #1: normal peripheral pulses, regular rate, rhythm, no murmur Gastrointestinal: soft, non-distended, no guarding, tenderness - Lower abdomen with Neurologic: alert, oriented x3, no focal defects Skin: normal color, warm/dry Medical Decision Making Diagnostic Impression: Primary Impression: Abdominal pain Additional Impression: Ovarian cyst ER Course MDM: Differential included but not limited to ovarian cyst, dysmenorrhea, UTI to name a few Clinical course-IV, IV fluids, pain control given. CT scan showed trace pelvic free fluid with possible right ovarian cyst. I did order an ultrasound which also demonstrated possible ovarian cyst. No evidence of torsion. Patient's vital signs are stable. No leukocytosis noted, regnancy negative. I suspect patient's pain may be secondary to a hemorrhagic cyst. I did discharge with pain control, recommended taking it with food. Follow-up PMD. Given return precautions. Labs - Laboratory Tests Test 03/28/20 21:40 White Blood Count 7.0 K/UL (4.8-10.8) Red Blood Count 4.85 M/UL (4.20-5.40) Hemoglobin 11.7 G/DL (12.0-16.0) L Hematocrit 37.2 % (37.0-47.0) Mean Corpuscular Volume 77 FL (80-99) L Mean Corpuscular Hemoglobin 24.1 PG (27.0-31.0) L Mean Corpuscular Hemoglobin Concent 31.4 G/DL (32.0-36.0) L Red Cell Distribution Width 18.6 % (11.6-14.8) H Platelet Count 241 K/UL (150-450) Mean Platelet Volume 7.9 FL (6.5-10.1) Neutrophils (%) (Auto) 66.5 % (45.0-75.0) Lymphocytes (%) (Auto) 24.4 % (20.0-45.0) Monocytes (%) (Auto) 7.0 % (1.0-10.0) Eosinophils (%) (Auto) 0.7 % (0.0-3.0) Basophils (%) (Auto) 1.5 % (0.0-2.0) Urine Color Yellow Urine Appearance Cloudy Urine pH 6 (4.5-8.0) Urine Specific [place] 1.010 (1.005-1.035) Urine Protein 1+ (NEGATIVE) H Urine Glucose (UA) Negative (NEGATIVE) Urine Ketones Negative (NEGATIVE) Urine Blood 5+ (NEGATIVE) H Urine Nitrite Negative (NEGATIVE) Urine Bilirubin Negative (NEGATIVE) Urine Urobilinogen Normal MG/DL (0.0-1.0) Urine Leukocyte Esterase Negative (NEGATIVE) Urine RBC Tntc /HPF (0 - 2) H Urine WBC 0-2 /HPF (0 - 2) Urine Squamous Epithelial Cells None /LPF (NONE/OCC) Urine Bacteria Few /HPF (NONE) Urine HCG, Qualitative Negative (NEGATIVE) Sodium Level 138 MMOL/L (136-145) Potassium Level 3.9 MMOL/L (3.5-5.1) Chloride Level 104 MMOL/L (98-107) Carbon Dioxide Level 26 MMOL/L (21-32) Anion Gap 8 mmol/L (5-15) Blood Urea Nitrogen 8 mg/dL (7-18) Creatinine 0.8 MG/DL (0.55-1.30) Estimated Glomerular Filtration Rate > 60 mL/min (>60) Glucose Level 121 MG/DL (74-106) H Calcium Level 8.4 MG/DL (8.5-10.1) L Magnesium Level 1.8 MG/DL (1.8-2.4) Total Bilirubin 0.1 MG/DL (0.2-1.0) L Aspartate Amino Transferase (AST) 17 U/L (15-37) Alanine Aminotransferase (ALT) 21 U/L (12-78) Alkaline Phosphatase 72 U/L (46-116) Total Protein 6.8 G/DL (6.4-8.2) Albumin 3.4 G/DL (3.4-5.0) Globulin 3.4 g/dL Albumin/Globulin Ratio 1.0 (1.0-2.7) Lipase 110 U/L (73-393) Urine Opiates Screen Negative (NEGATIVE) Urine Barbiturates Screen Negative (NEGATIVE) Phencyclidine (PCP) Screen Negative (NEGATIVE) Urine Amphetamines Screen Negative (NEGATIVE) Urine Benzodiazepines Screen Negative (NEGATIVE) Urine Cocaine Screen Negative (NEGATIVE) Urine Marijuana (THC) Screen Negative (NEGATIVE) On reevaluation: Patient resting comfortably Plan-discharge, follow-up PMD, strict return precautions CT/MRI/US Diagnostic Results CT/MRI/US Diagnostic Results #1: Imaging Test Ordered: CT scan abdomen and pelvis Impression IMPRESSION: 1. Normal appendix. 2. Incidental bilateral ovarian cysts. If clinical concern, pelvic ultrasound can be considered. 3. Mild amount of pelvic free fluid, likely physiologic. CT/MRI/US Diagnostic Results #2: Imaging Test Ordered: Ultrasound abdomen Impression IMPRESSION: There is question of an approximately 1.9 x 2.4 x 2.3 cm hypoechoic area in the right ovary which may be related to a hemorrhagic cyst. Last Vital Signs Date Time Temp Pulse Resp B/P (MAP) Pulse Ox O2 Delivery O2 Flow Rate FiO2 03/29/20 00:14 98.4 78 16 128/74 98 Room Air Status: improved Disposition: HOME, SELF-CARE Condition: Improved Scripts Naproxen* (NAPROXEN*) 500 Mg Tablet 500 MG ORAL TWICE A WEEK PRN for For Pain, #60 TAB 0 Refills PLEASE TAKE WITH FOOD Prov: Khadar Ayala M.D. 03/29/20 Referrals: [facility],REFERRING (PCP) Khadar Ayala M.D. Mar 29, 2020 00:18
[2020-03-29 00:27] LABS: APPEARANCE,URINE CLOUDY; BILIRUBIN, URINE NEGATIVE (NEGATIVE); GLUCOSE, URINE (UA) NEGATIVE (NEGATIVE); KETONES,URINE NEGATIVE (NEGATIVE); LEUKOCYTE ESTERASE ,URINE NEGATIVE (NEGATIVE); NITRITE,URINE NEGATIVE (NEGATIVE); PH,URINE 6 (4.5-8.0); PROTEIN,URINE 1+ (NEGATIVE); UROBILINOGEN,URINE NORMAL MG/DL (0.0-1.0)
[2020-03-29 00:39] LABS: CARBON DIOXIDE 26 MMOL/L (21-32); CHLORIDE 104 MMOL/L (98-107); POTASSIUM 3.9 MMOL/L (3.5-5.1); SODIUM 138 MMOL/L (136-145)
[2020-03-29 00:40] LABS: ALANINE AMINOTRANSFERASE 21 U/L (12-78); ALBUMIN 3.4 G/DL (3.4-5.0); ALKALINE PHOSPHATASE 72 U/L (46-116); ANION GAP 8 mmol/L (5-15); ASPARTATE AMINO TRANSFERASE 17 U/L (15-37); BILIRUBIN,TOTAL 0.1 MG/DL (0.2-1.0); BLOOD UREA NITROGEN 8 mg/dL (7-18); CALCIUM 8.4 MG/DL (8.5-10.1); CREATININE 0.8 MG/DL (0.55-1.30)
[2020-03-29 00:42] LABS: COLOR,URINE YELLOW
[2020-03-29] MEDS ORDERED: Ketorolac 30mg Inj IV ONE (00:45)
--- NOTE | 2020-03-29 01:48 | NUR ---
Nurse Note: US at pt side. MD made aware of pain on LT side breast; pain med administered. Pt VSS, remains at baseline condiditon. All safety measures met; will continue to monitor.
[2020-03-29] MEDS ORDERED: NAPROXEN500 M2 ORAL (02:11)
[2020-03-29 02:30] VITALS: BP 132/80
--- NOTE | 2020-03-29 02:30 | NUR ---
ER DISCHARGE NOTE: Patient is cleared to be discharged per ERMD. Pt is aox4, on room air, with stable vital signs. Pt was given dc and prescription instructions. Pt was able to verbalize understanding; instructed pt to follow up with primary care physican within one week. Pt id band and iv site removed without complications; site clean and bandaged. Pt is able to ambulate with steady gait. Pt took all belongings.
--- NOTE | 2020-03-29 02:37 | Diagnostic Imaging Report ---
EXAM: US Pelvis Transabdominal, Complete CLINICAL HISTORY: ABD PAIN TECHNIQUE: Real-time complete transabdominal pelvic ultrasound with image documentation. COMPARISON: CT performed on 03/28/20. FINDINGS: Uterus/cervix: The uterus is unremarkable and measures 8.9 x 5.1 x 6.2 cm. Endometrial stripe measures 12 mm. No myometrial mass. Right ovary: There is question of an approximately 1.9 x 2.4 x 2.3 cm hypoechoic area in the right ovary which may be related to a hemorrhagic cyst. The right ovary demonstrates vascular flow. The right ovary measures 4.5 x 2.7 x 2.3 cm. Left ovary: No definite flow is appreciated within the left ovary, however, this may be related to the position of the left ovary and technical factors. Ovarian torsion cannot entirely be excluded. There is no evidence for significant enlargement of the left ovary to suggest ovarian torsion. Correlation with clinical findings is recommended. The left ovary measures 3.2 x 3.0 x 3.2 cm. Free fluid: Small amount of free fluid in the pelvis on the right. Bladder: Unremarkable as visualized. IMPRESSION: There is question of an approximately 1.9 x 2.4 x 2.3 cm hypoechoic area in the right ovary which may be related to a hemorrhagic cyst.
== END 2020-03-29 02:30 | disposition home or self-care (01) ==
LOC: EMR 21:33
DX: N83.209 Unspecified ovarian cyst, unspecified side (principal); N83.202 Unspecified ovarian cyst, left side; N83.201 Unspecified ovarian cyst, right side
CPT/HCPCS: 36415; 74177; 76830; 76856; 80053; 80307; 81003; 81025; 83690; 83735; 85025; 96361; 96374; J1885; J7030; Q9965; Z7502; 99284

== ENCOUNTER 2020-06-20 01:17 | Emergency (ER) | payer MEDICAID ==
[~2020-06-20] VITALS: Ht 162.6 cm; Wt 77.1 kg
[~2020-06-20 01:17] MED LIST changes: +NAPROXEN500 M2 ORAL
[2020-06-20 01:40] VITALS: BP 105/63
--- NOTE | 2020-06-20 01:40 | NUR ---
ED Nurse Note: Patient walked into ED for c/o lower abdominal pain onset 1500 yesterday. Patient notes she is on her menstrual period at this time. Pain is aching/cramping in nature, nonradiating. She denies n/v/d. 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 She is aaox4, breathing is normal and unlabored.
[2020-06-20] MEDS: Ketorolac 30mg Inj IV ONE (01:52)
--- NOTE | 2020-06-20 01:52 | Emergency Room Report ---
History of Present Illness General Chief Complaint: Abdominal Pain Source: Patient Present Illness HPI This 30-year-old female with no past medical history. She presents with chief plaint of abdominal pain. Onset today. She started her menstruation. Pain is to the lower pelvic area. Crampy in nature. 10 out of 10. No relief with Tylenol. No nausea vomiting or diarrhea. No fever chills but no urinary complaint. She was here in March and had a hemorrhagic cyst. No radiation of the pain. Nothing made it better. Nothing made it worse. 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 Patient History Past Medical History: see triage record, old chart reviewed Past Surgical History: none Pertinent Family History: none Social History: Denies: smoking Last Menstrual Period: 06/19/2020 Now: No : 1 Para: 0 Immunizations: other Reviewed Nursing Documentation: PMH: Agreed; PSxH: Agreed Nursing Documentation-PMH Past Medical History: No History, Except For Hx Gastrointestinal Problems: No - miscarriage Review of Systems Eye: Denies: eye pain, blurred vision ENT: Denies: ear pain, nose congestion, throat swelling Respiratory: Denies: cough, shortness of breath Cardiovascular: Denies: chest pain, palpitations Gastrointestinal: Reports: abdominal pain; Denies: diarrhea, nausea, vomiting Musculoskeletal: Denies: back pain, joint pain Skin: Denies: rash Neurological: Denies: headache, numbness Endocrine: Denies: increased thirst, increased urine Hematologic/Lymphatic: Denies: easy bruising All Other Systems: negative except mentioned in HPI Physical Exam Vital Signs Date Time Temp Pulse Resp B/P (MAP) Pulse Ox O2 Delivery O2 Flow Rate FiO2 06/20/20 01:18 98.1 76 20 105/63 (77) 97 Room Air Vitals normal Sp02 EP Interpretation: reviewed, normal General Appearance: well appearing, no apparent distress, alert Head: normocephalic, atraumatic Eyes: bilateral eye PERRL, bilateral eye EOMI ENT: hearing grossly normal, normal pharynx Neck: full range of motion, supple, no meningismus Respiratory: chest non-tender, lungs clear, normal breath sounds Cardiovascular #1: regular rate, rhythm, no murmur Gastrointestinal: normal bowel sounds, non tender, no mass, no organomegaly, no bruit, non-distended Musculoskeletal: back normal, normal range of motion, gait/station normal Psychiatric: mood/affect normal Medical Decision Making Diagnostic Impression: Primary Impression: Abdominal pain Qualified Codes: R10.30 - Lower abdominal pain, unspecified ER Course This patient presents with lower abdominal pain. Likely secondary to menstruation cramps versus ovarian cyst. No evidence of an acute abdomen. Pain resolved now. Will discharge home. Last Vital Signs Date Time Temp Pulse Resp B/P (MAP) Pulse Ox O2 Delivery O2 Flow Rate FiO2 06/20/20 01:18 98.1 76 20 105/63 (77) 97 Room Air Status: improved Disposition: HOME, SELF-CARE Condition: Stable Scripts Ibuprofen* (MOTRIN*) 600 Mg Tablet 600 MG ORAL Q6H PRN for For Pain, #30 TAB 0 Refills Prov: Basilio Hodge MD 06/20/20 Referrals: [facility],REFERRING (PCP) Patient Instructions: Abdominal Pain, Adult Additional Instructions: Follow-up with your doctor in 7 days. Return if symptoms worsen. Basilio Hodge MD Jun 20, 2020 01:52
[2020-06-20 02:23] LABS: BASOPHILS % (AUTO) 1.3 % (0.0-2.0); EOSINOPHILS % (AUTO) 0.8 % (0.0-3.0); HEMATOCRIT 35.8 % (37.0-47.0); HEMOGLOBIN 11.4 G/DL (12.0-16.0); LYMPHOCYTES % (AUTO) 35.2 % (20.0-45.0); MEAN CORPUSCULAR VOLUME 75 FL (80-99); MONOCYTES % (AUTO) 5.6 % (1.0-10.0); NEUTROPHILS % (AUTO) 57.2 % (45.0-75.0); PLATELET COUNT 229 K/UL (150-450); RED BLOOD COUNT 4.79 M/UL (4.20-5.40); RED CELL DISTRIBUTION WIDTH 18.2 % (11.6-14.8); WHITE BLOOD COUNT 5.7 K/UL (4.8-10.8)
[2020-06-20 02:35] LABS: ANION GAP 7 mmol/L (5-15); BLOOD UREA NITROGEN 14 mg/dL (7-18); CALCIUM 8.2 MG/DL (8.5-10.1); CARBON DIOXIDE 27 MMOL/L (21-32); CHLORIDE 106 MMOL/L (98-107); CREATININE 0.8 MG/DL (0.55-1.30); POTASSIUM 3.8 MMOL/L (3.5-5.1); SODIUM 140 MMOL/L (136-145)
[2020-06-20 02:40] LABS: ALANINE AMINOTRANSFERASE 25 U/L (12-78); ALBUMIN 3.5 G/DL (3.4-5.0); ALBUMIN/GLOBULIN RATIO 0.9 (1.0-2.7); ALKALINE PHOSPHATASE 87 U/L (46-116); ASPARTATE AMINO TRANSFERASE 18 U/L (15-37); BILIRUBIN,TOTAL 0.2 MG/DL (0.2-1.0)
[2020-06-20 02:59] LABS: APPEARANCE,URINE CLEAR; BILIRUBIN, URINE NEGATIVE (NEGATIVE); GLUCOSE, URINE (UA) NEGATIVE (NEGATIVE); KETONES,URINE NEGATIVE (NEGATIVE); LEUKOCYTE ESTERASE ,URINE NEGATIVE (NEGATIVE); NITRITE,URINE NEGATIVE (NEGATIVE); PH,URINE 6 (4.5-8.0); PROTEIN,URINE 1+ (NEGATIVE); UROBILINOGEN,URINE 1 MG/DL (0.0-1.0)
[2020-06-20 03:06] LABS: COLOR,URINE YELLOW
[2020-06-20] MEDS ORDERED: IBUPROFEN600 M1 ORAL (03:38)
[2020-06-20 03:45] VITALS: BP 110/66
--- NOTE | 2020-06-20 03:45 | NUR ---
ER DISCHARGE NOTE: Patient is cleared to be discharged per ERMD, pt is aox4, on room air, with stable vital signs. pt was given dc and prescription instructions, pt was able to verbalize understanding, pt id band and iv site removed without complications. pt is able to ambulate with steady gait. pt took all belongings.
== END 2020-06-20 03:45 | disposition home or self-care (01) ==
LOC: EMR 01:39
DX: R10.30 Lower abdominal pain, unspecified (principal)
CPT/HCPCS: 36415; 80053; 81003; 81025; 83690; 85025; 96361; 96374; J1885; Z7502; 99284